=== PATIENT | female | born 1955 | race African-American/Black ===

== ENCOUNTER 2019-01-31 13:44 | Emergency (ER) | payer MEDICAID ==
[~2019-01-31] VITALS: Ht 165.1 cm; Wt 108.9 kg
[~2019-01-31 13:44] MED LIST: BENAZEPRIL HCL10 MG ORAL; CATAPRES0.2 MG ORAL; GLUCOPHAGE500 MG ORAL; GLUCOTROL5 MG ORAL; IBUPROFEN600 MG ORAL; NAPROXEN250 MG ORAL; NORCO 10/3251 EA ORAL; VICODIN 5-5001 EACH PO
[2019-01-31 14:05] VITALS: BP 207/95
--- NOTE | 2019-01-31 14:05 | NUR ---
ED Nurse Note: Pt walked in to ED c/o dizinness with nausea since this morning. Pt also reports tinnitus since last night. Pt is A&O x4, V/S noted, denies pain. Pt is connected to the laboratory monitor, bed placed in the lowest position with side rails up. Will continue to monitor.
[2019-01-31] MEDS ORDERED: LORazepam Inj 2mg/ml 1ml IV ONE (14:15)
--- NOTE | 2019-01-31 14:20 | Emergency Room Report ---
History of Present Illness General Chief Complaint: Dizziness Source: Patient Present Illness HPI Patient presents with dizziness. She had a problem with her right ear and used hydroperoxide last night. She also used it again this morning. There is improvement in her hearing. After that she started to feel dizziness. The dizziness was associated with nausea. There is no vomiting. She also feels some heartburn. She checked her sugar this morning and it was around 200. She denies any headache, fevers, chills, chest pain or palpitations. She also says she was drinking some wine last night. She usually does not drink wine. The patient has a history of hypertension. She did take her medications morning. She says that when she is around doctors her blood pressure goes up particularly when she feels anxious. She does feel anxiety at this time. She takes metformin. No blood thinners, oncologic problems, weakness or numbness. 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 Reviewed Nursing Documentation: PMH: Agreed; PSxH: Agreed Nursing Documentation-PMH Past Medical History: No History, Except For Hx Hypertension: Yes Hx Diabetes: Yes Review of Systems All Other Systems: negative except mentioned in HPI Physical Exam Vital Signs Date Time Temp Pulse Resp B/P (MAP) Pulse Ox O2 Delivery O2 Flow Rate FiO2 01/31/19 14:03 98.1 80 13 99 Room Air Sp02 EP Interpretation: reviewed, normal General Appearance: well appearing, no apparent distress, GCS 15 Head: normocephalic, atraumatic Eyes: bilateral eye normal inspection, bilateral eye PERRL, bilateral eye EOMI - No nystagmus ENT: TMs + canals normal, moist mucus membranes, other - no pinna tenderness Neck: supple Respiratory: lungs clear, normal breath sounds Cardiovascular #1: regular rate, rhythm Cardiovascular #2: 2+ radial (R) Gastrointestinal: normal inspection, normal bowel sounds, non tender, no mass, non-distended Musculoskeletal: back normal, gait/station normal, normal range of motion Neurologic: alert, oriented x3, motor strength/tone normal - no drift, DTRs symmetric, sensory intact, cerebellar normal, speech normal Psychiatric: depressed affect Skin: normal inspection, warm/dry Medical Decision Making Diagnostic Impression: Primary Impression: Labyrinthitis of right ear Additional Impression: Labile hypertension ER Course Patient presents with vertigo and nausea after cleaning her right ear. In addition she is diabetic and hypertensive. I differential includes labyrinthitis, local reaction to ear cleaning, hyperglycemia, other electro right abnormalities, acute myocardial infarction amongst others. The patient will be evaluated with EKG, chest x-ray and labs. CT is not indicated as the patient is a nonfocal neurologic at this time. The patient will be treated with Zofran, Pepcid and Ativan. Repeat blood pressures will be obtained. The patient is placed on a patient monitor. EKG no injury. CXR inc cor. Labs with elevated glucose. Eosinophilia. Improved with treatment. No nausea. Able to sit and stand without dizziness. Discussed findings with patient. Patient stable for outpatient observation and treatment. Laboratory Tests Test 01/31/19 14:35 01/31/19 14:40 Urine Opiates Screen Negative (NEGATIVE) Urine Barbiturates Screen Negative (NEGATIVE) Phencyclidine (PCP) Screen Negative (NEGATIVE) Urine Amphetamines Screen Negative (NEGATIVE) Urine Benzodiazepines Screen Negative (NEGATIVE) Urine Cocaine Screen Negative (NEGATIVE) Urine Marijuana (THC) Screen Negative (NEGATIVE) White Blood Count 4.8 K/UL (4.8-10.8) Red Blood Count 4.92 M/UL (4.20-5.40) Hemoglobin 13.4 G/DL (12.0-16.0) Hematocrit 40.7 % (37.0-47.0) Mean Corpuscular Volume 83 FL (80-99) Mean Corpuscular Hemoglobin 27.2 PG (27.0-31.0) Mean Corpuscular Hemoglobin Concent 32.8 G/DL (32.0-36.0) Red Cell Distribution Width 12.4 % (11.6-14.8) Platelet Count 257 K/UL (150-450) Mean Platelet Volume 6.5 FL (6.5-10.1) Neutrophils (%) (Auto) 57.6 % (45.0-75.0) Lymphocytes (%) (Auto) 28.4 % (20.0-45.0) Monocytes (%) (Auto) 7.6 % (1.0-10.0) Eosinophils (%) (Auto) 3.7 % (0.0-3.0) H Basophils (%) (Auto) 2.7 % (0.0-2.0) H PTT 26 SEC (23-33) Sodium Level 140 MMOL/L (136-145) Potassium Level 4.1 MMOL/L (3.5-5.1) Chloride Level 102 MMOL/L (98-107) Carbon Dioxide Level 31 MMOL/L (21-32) Anion Gap 7 mmol/L (5-15) Blood Urea Nitrogen 15 mg/dL (7-18) Creatinine 0.8 MG/DL (0.55-1.30) Estimate Glomerular Filtration Rate > 60 mL/min (>60) Glucose Level 226 MG/DL (74-106) H Calcium Level 9.6 MG/DL (8.5-10.1) Total Bilirubin 0.6 MG/DL (0.2-1.0) Aspartate Amino Transferase (AST) 15 U/L (15-37) Alanine Aminotransferase (ALT) 24 U/L (12-78) Alkaline Phosphatase 74 U/L (46-116) Total Creatine Kinase 189 U/L (26-308) Troponin I 0.000 ng/mL (0.000-0.056) Pro-B-Type Natriuretic Peptide 57 pg/mL (0-125) Total Protein 7.7 G/DL (6.4-8.2) Albumin 3.6 G/DL (3.4-5.0) Globulin 4.1 g/dL Albumin/Globulin Ratio 0.9 (1.0-2.7) L Serum Alcohol < 3 mg/dL EKG Diagnostic Results Rate: normal Rhythm: NSR ST Segments: no acute changes - LAE Rhythm Strip Diag. Results EP Interpretation: yes Rhythm: NSR, no PVC's, no ectopy Chest X-Ray Diagnostic Results Chest X-Ray Diagnostic Results : Chest X-Ray Ordered: Yes # of Views/Limited/Complete: 1 View Indication: Other EP Interpretation: Yes Interpretation: no consolidation, no effusion, no pneumothorax, other - inc cor Impression: Other Electronically Signed by: Electronically signed by Renato Pritchard MD Last Vital Signs Date Time Temp Pulse Resp B/P (MAP) Pulse Ox O2 Delivery O2 Flow Rate FiO2 01/31/19 16:44 98.3 74 15 156/74 100 Room Air Status: improved Disposition: HOME, SELF-CARE Condition: Improved Scripts Ondansetron Odt* (ZOFRAN ODT*) 4 Mg Tab.rapdis 4 MG BC EVERY 8 HOURS, #6 TAB 0 Refills Prov: Renato Pritchard MD 01/31/19 Meclizine Hcl* (MECLIZINE*) 25 Mg Tablet 25 MG ORAL THREE TIMES A DAY PRN for vertigo, #10 TAB Prov: Renato Pritchard MD 01/31/19 Renato Pritchard MD January 31, 2019 14:20
[2019-01-31 14:51] LABS: BASOPHILS % (AUTO) 2.7 % (0.0-2.0); EOSINOPHILS % (AUTO) 3.7 % (0.0-3.0); HEMATOCRIT 40.7 % (37.0-47.0); HEMOGLOBIN 13.4 G/DL (12.0-16.0); LYMPHOCYTES % (AUTO) 28.4 % (20.0-45.0); MEAN CORPUSCULAR VOLUME 83 FL (80-99); MONOCYTES % (AUTO) 7.6 % (1.0-10.0); NEUTROPHILS % (AUTO) 57.6 % (45.0-75.0); PLATELET COUNT 257 K/UL (150-450); RED BLOOD COUNT 4.92 M/UL (4.20-5.40); RED CELL DISTRIBUTION WIDTH 12.4 % (11.6-14.8); WHITE BLOOD COUNT 4.8 K/UL (4.8-10.8)
[2019-01-31 15:02] LABS: ANION GAP 7 mmol/L (5-15); BLOOD UREA NITROGEN 15 mg/dL (7-18); CALCIUM 9.6 MG/DL (8.5-10.1); CARBON DIOXIDE 31 MMOL/L (21-32); CHLORIDE 102 MMOL/L (98-107); CREATININE 0.8 MG/DL (0.55-1.30); POTASSIUM 4.1 MMOL/L (3.5-5.1); SODIUM 140 MMOL/L (136-145)
[2019-01-31 15:12] LABS: ALANINE AMINOTRANSFERASE 24 U/L (12-78); ALBUMIN 3.6 G/DL (3.4-5.0); ALBUMIN/GLOBULIN RATIO 0.9 (1.0-2.7); ALKALINE PHOSPHATASE 74 U/L (46-116); ASPARTATE AMINO TRANSFERASE 15 U/L (15-37); BILIRUBIN,TOTAL 0.6 MG/DL (0.2-1.0); CREATINE KINASE 189 U/L (26-308)
--- NOTE | 2019-01-31 15:54 | Diagnostic Imaging Report ---
EXAM: XR Chest, 1 View CLINICAL HISTORY: DIZZY TECHNIQUE: Frontal view of the chest. COMPARISON: No relevant prior studies available. FINDINGS: Lungs: Vascular congestion. Pleural space: Unremarkable. No pneumothorax. Heart: Mild cardiomegaly. Mediastinum: Unremarkable. Bones/joints: Unremarkable. IMPRESSION: Cardiomegaly and vascular congestion
[2019-01-31] MEDS ORDERED: MECLIZINE HCL25 MG ORAL (16:25)
[2019-01-31] MEDS ORDERED: ONDANSETRON ODT4 MG BC (16:25)
--- NOTE | 2019-01-31 16:43 | NUR ---
ED Nurse Note: PT LAYING PEACEFULLY IN BED IN NAD. AOX4. PRESCRIPTIONS AND DISCHARGE PAPERWORK EXPLAINED TO PT. PT VERBALIZES UNDERSTANDING AND ALL QUESTIONS ANSWERED. PRESCRIPTIONS AND DISCHARGE PAPERWORK GIVEN TO PT, IV AND ID WRISTBAND REMOVED. PT WALKED OUT OF ER WITH STEADY GAIT AND ALL BELONGINGS.
[2019-01-31 16:44] VITALS: BP 156/74
== END 2019-01-31 16:44 | disposition home or self-care (01) ==
LOC: EMR 14:28
DX: H83.01 Labyrinthitis, right ear (principal); I10 Essential (primary) hypertension; E11.9 Type 2 diabetes mellitus without complications; Z79.84 Long term (current) use of oral hypoglycemic drugs; Z79.899 Other long term (current) drug therapy; I51.7 Cardiomegaly
CPT/HCPCS: 36415; 71045; 80053; 80307; 80329; 82550; 83880; 84484; 85025; 85730; 93005; 96374; 96375; 99284; J2405; S0028

== ENCOUNTER 2020-07-15 18:32 | Emergency (ER) | payer BC, MEDICAID, MEDICARE ==
[~2020-07-15] VITALS: Ht 167.6 cm; Wt 111.1 kg
[~2020-07-15 18:32] MED LIST changes: +MECLIZINE HCL25 MG ORAL; +ONDANSETRON ODT4 MG BC
[2020-07-15 18:58] VITALS: BP 206/108
[2020-07-15] MEDS ORDERED: Morphine Sulfate 4mg/ml Inj (IV USE ONLY) IVP ONE (19:15)
[2020-07-15] MEDS ORDERED: Omnipaque-300 100ml vial INJ ONE (19:15)
--- NOTE | 2020-07-15 19:25 | Emergency Room Report ---
History of Present Illness General Chief Complaint: General Complaint Source: Patient (Jocelyn Guzmán) Present Illness HPI 65-year-old female with past medical history of diabetes and high blood pressure presents to the emergency department complaining of 10 out of 10 severity pain localized to the right breast in addition to swelling, bruising and tenderness. Patient status post right breast biopsy performed 2 days ago. Patient reports she was told by 1 of the nurses after the procedure that "something may have gotten clipped "patient referring to small blood vessel. Patient states her bruising has been progressive. She states she is not currently taking any antibiotics or pain medications. Patient denies taking blood thinning medications. Patient also reports that after the procedure she had 4 [id number] mammograms performed which exacerbated her symptoms. She denies fevers or chills. She denies nausea vomiting. She reports pain is worse with palpation or laying on her side. Patient denies bleeding or discharge from the incision sites. Patient states she had a follow-up with her NEON INSTALLER who told her to go to the ER. (Jocelyn Guzmán) Allergies: Coded Allergies: No Known Allergies (Unverified , 10/28/17) COVID-19 Screening Contact w/high risk pt: No Experienced COVID-19 symptoms?: No COVID-19 Testing performed FORGING MACHINE HAND: No (Jocelyn Guzmán) Patient History Past Medical History: see triage record Past Surgical History: none Pertinent Family History: none Last Menstrual Period: na Reviewed Nursing Documentation: PMH: Agreed; PSxH: Agreed (Jocelyn Guzmán) Nursing Documentation-PMH Past Medical History: No History, Except For Hx Hypertension: Yes Hx Diabetes: Yes (Jocelyn Guzmán) Review of Systems All Other Systems: negative except mentioned in HPI (Jocelyn Guzmán) Physical Exam Vital Signs Date Time Temp Pulse Resp B/P (MAP) Pulse Ox O2 Delivery O2 Flow Rate FiO2 07/15/20 18:39 98.1 91 18 206/108 (140) 98 Room Air Sp02 EP Interpretation: reviewed, normal General Appearance: no apparent distress, alert, GCS 15, non-toxic Head: normocephalic, atraumatic Eyes: bilateral eye normal inspection, bilateral eye PERRL ENT: hearing grossly normal, normal voice Neck: full range of motion Respiratory: lungs clear, normal breath sounds, speaking full sentences, other - Moderate tenderness to palpation to the right breast there is a large visible hematoma. 2 surgical incision sites are noted that were covered with Steri- Strips. Some palpable warmth Cardiovascular #1: regular rate, rhythm, no edema Gastrointestinal: normal bowel sounds, non tender, soft Musculoskeletal: normal range of motion, gait/station normal, non-tender Neurologic: alert, motor strength/tone normal, oriented x3, sensory intact, responsive, speech normal Psychiatric: judgement/insight normal Skin: Ecchymosis/Bruising - large hematoma of the anteriolateral aspect of the right breast. (Jocelyn Guzmán) Medical Decision Making PA Attestation Dr. Pritchard Is my supervising Physician whom patient management has been discussed with. (Jocelyn Guzmán) Diagnostic Impression: Primary Impression: Breast hematoma after procedure Additional Impressions: Hyperglycemia Breast mass, right Hypertension Qualified Codes: I10 - Essential (primary) hypertension ER Course 65-year-old female with past medical history of diabetes and high blood pressure presents to the emergency department complaining of 10 out of 10 severity pain localized to the right breast in addition to swelling, bruising and tenderness. Patient status post right breast biopsy performed 2 days ago. Patient reports she was told by 1 of the nurses after the procedure that "something may have gotten clipped "patient referring to small blood vessel. Patient states her bruising has been progressive. She states she is not currently taking any antibiotics or pain medications. Patient denies taking blood thinning medications. Patient also reports that after the procedure she had 4 [id number] mammograms performed which exacerbated her symptoms. She denies fevers or chills. She denies nausea vomiting. She reports pain is worse with palpation or laying on her side. Patient denies bleeding or discharge from the incision sites. Patient states she had a follow-up with her NEON INSTALLER who told her to go to the ER. Ddx considered but are not limited to cellulitis, abscess, mastitis, shingles, malignancy,or hematoma just to name a few. Vital signs: Pt. BP is significantly elevated, remaining VS are WNL, pt. is afebrile. H&PE are most consistent with Large hematoma of the right breast requiring imaging and labs to determine extent and to r/o infectious process. ORDERS: -CBC: Unremarkable -CMP: Glucose elevated at 405 -PT/PTT: -ABO : - Lactic Acid: WNL -CT Chest w. Contrast:See report below ED INTERVENTIONS: -Morphine 6mg IV -1 Liter NS Bolus --glucose improved to 231 with half the fluids, Continue to receive full liter prior to d/c. BP was rechecked as well. Extensive Pt. education regarding hyperglycemia and elevated blood pressures. Emphasis was placed on group home damage to kidneys as well as high risk of stoke. Encouraged pt. to keep a log and check twice a day. Reviewed imaging results with pt. and she was given a copy to take with her to her follow up appointments. DISCHARGE: At this time pt. is stable for d/c to home. Will provide printed patient care instructions, and any necessary prescriptions. Care plan and follow up instructions have been discussed with the patient prior to discharge. Labs Test 07/15/20 19:20 White Blood Count 5.3 K/UL (4.8-10.8) Red Blood Count 4.90 M/UL (4.20-5.40) Hemoglobin 13.7 G/DL (12.0-16.0) Hematocrit 40.7 % (37.0-47.0) Mean Corpuscular Volume 83 FL (80-99) Mean Corpuscular Hemoglobin 28.0 PG (27.0-31.0) Mean Corpuscular Hemoglobin Concent 33.7 G/DL (32.0-36.0) Red Cell Distribution Width 12.3 % (11.6-14.8) Platelet Count 246 K/UL (150-450) Mean Platelet Volume 8.0 FL (6.5-10.1) Neutrophils (%) (Auto) 49.6 % (45.0-75.0) Lymphocytes (%) (Auto) 37.5 % (20.0-45.0) Monocytes (%) (Auto) 6.9 % (1.0-10.0) Eosinophils (%) (Auto) 3.4 % (0.0-3.0) Basophils (%) (Auto) 2.6 % (0.0-2.0) Prothrombin Time 10.1 SEC (9.30-11.50) Prothromb Time International Ratio 0.9 (0.9-1.1) Activated Partial Thromboplast Time 25 SEC (23-33) Sodium Level 135 MMOL/L (136-145) Potassium Level 3.7 MMOL/L (3.5-5.1) Chloride Level 100 MMOL/L (98-107) Carbon Dioxide Level 28 MMOL/L (21-32) Anion Gap 7 mmol/L (5-15) Blood Urea Nitrogen 21 mg/dL (7-18) Creatinine 1.2 MG/DL (0.55-1.30) Estimat Glomerular Filtration Rate 54.7 mL/min (>60) Glucose Level 402 MG/DL (74-106) Lactic Acid Level 1.70 mmol/L (0.4-2.0) Calcium Level 8.8 MG/DL (8.5-10.1) Total Bilirubin 0.3 MG/DL (0.2-1.0) Aspartate Amino Transf (AST/SGOT) 13 U/L (15-37) Alanine Aminotransferase (ALT/SGPT) 11 U/L (12-78) Alkaline Phosphatase 102 U/L (46-116) Total Protein 6.3 G/DL (6.4-8.2) Albumin 3.0 G/DL (3.4-5.0) Globulin 3.3 g/dL Albumin/Globulin Ratio 0.9 (1.0-2.7) (Jocelyn Guzmán) ER Course Patient signed out to me. She presents with hematoma however p.o. after procedure done. Her blood pressure was elevated. Oral and IV blood pressure medication given. She also has high blood sugar and that improved with IV fluid. Patient has no evidence of endorgan damage. Will discharge home. (Yonatan Mi MD) CT/MRI/US Diagnostic Results CT/MRI/US Diagnostic Results : Impression " IMPRESSION: 1. No acute abnormality definitively identified to account for patient presentation. 2. Recommend diagnostic right breast mammogram and ultrasound to further evaluate possible right breast neoplasm. 3. Nonobstructing right nephroliths, largest 0.3 cm. 4. Otherwise unremarkable. ADDENDUM - Added by Tigre Kemp MD on 07/15/2020 9:06 PM (-07:00) Addendum: 1. Reportedly, this patient had a recent breast biopsy. 2. Findings in the right breast could also be consistent with trauma. 3. Otherwise unchanged report." --Per official radiology report- Please see report for specific details. (Jocelyn Guzmán) Last Vital Signs Date Time Temp Pulse Resp B/P (MAP) Pulse Ox O2 Delivery O2 Flow Rate FiO2 07/15/20 18:58 91 18 Room Air 07/15/20 18:58 98.1 206/108 98 (Jocelyn Guzmán) Status: improved (Yonatan Mi MD) Disposition: HOME, SELF-CARE Condition: Improved Signed Out To: Dr. Pritchard (Jocelyn Guzmán) Scripts Hydrocodone Bit/Acetaminophen 7.5-325* (NORCO 7.5-325*) 1 Each Tablet 1 TAB ORAL Q6H PRN for For Pain, #12 TAB 0 Refills Prov: Jocelyn Guzmán 07/15/20 Patient Instructions: Blood Glucose Monitoring, Adult, Breast Biopsy, Care After, Form - Blood Pressure Record Sheet, Hematoma, How to Take Your Blood Pressure, [id number], Hyperglycemia, [id number], Managing Your High Blood Pressure Additional Instructions: Take medications as directed. Do not drink alcohol, drive, or operate heavy machinery while taking [place] as this may cause drowsiness. Follow up with Your (PCP) Primary Care Provider and Transmission Design Engineer within 3-4 days, even if your symptoms have resolved. Bring the copy of your CT imaging results with you to both visits. Repeat evaluation/imaging will need to compare sizes of the 5.4cm mass. keep a log of your blood sugar and Blood pressure twice a day. If your resul ts continue to be abnormal your medication may need to be adjusted to avoid serious complications of high blood sugar or blood pressure such as renal damage/failure, coma, stroke or a brain bleed. Just to name a few. Return sooner to ED if new symptoms occur, or current symptoms become worse. - Please note that this Emergency Department Report was dictated using [employer] technology software, occasionally this can lead to erroneous entry secondary to interpretation by the dictation equipment. Jocelyn Guzmán Jul 15, 2020 19:25 Yonatan Mi MD Jul 15, 2020 22:52
[2020-07-15 19:38] LABS: BASOPHILS % (AUTO) 2.6 % (0.0-2.0); EOSINOPHILS % (AUTO) 3.4 % (0.0-3.0); HEMATOCRIT 40.7 % (37.0-47.0); HEMOGLOBIN 13.7 G/DL (12.0-16.0); LYMPHOCYTES % (AUTO) 37.5 % (20.0-45.0); MEAN CORPUSCULAR VOLUME 83 FL (80-99); MONOCYTES % (AUTO) 6.9 % (1.0-10.0); NEUTROPHILS % (AUTO) 49.6 % (45.0-75.0); PLATELET COUNT 246 K/UL (150-450); RED CELL DISTRIBUTION WIDTH 12.3 % (11.6-14.8); WHITE BLOOD COUNT 5.3 K/UL (4.8-10.8)
[2020-07-15 19:51] LABS: CALCIUM 8.8 MG/DL (8.5-10.1); CREATININE 1.2 MG/DL (0.55-1.30); POTASSIUM 3.7 MMOL/L (3.5-5.1)
[2020-07-15 19:53] LABS: INR 0.9 (0.9-1.1)
[2020-07-15 19:56] LABS: ALBUMIN/GLOBULIN RATIO 0.9 (1.0-2.7); BILIRUBIN,TOTAL 0.3 MG/DL (0.2-1.0)
--- NOTE | 2020-07-15 21:00 | Diagnostic Imaging Report ---
ADDENDUM - Added by Tigre Kemp MD on 07/15/2020 9:06 PM (-07:00) Addendum: 1. Reportedly, this patient had a recent breast biopsy. 2. Findings in the right breast could also be consistent with trauma. 3. Otherwise unchanged report. EXAM: CT Chest With Intravenous Contrast CLINICAL HISTORY: PAIN TECHNIQUE: Axial computed tomography images of the chest with intravenous contrast. CTDI is 15.6 mGy and DLP is 697.8 mGy-cm. One or more of the following dose reduction techniques were used: automated exposure control, adjustment of the mA and/or kV according to patient size, use of iterative reconstruction technique. COMPARISON: No relevant prior studies available. FINDINGS: Lungs: Unremarkable. No mass. No consolidation. Pleural space: Unremarkable. No pneumothorax. No significant effusion. Heart: Unremarkable. No cardiomegaly. No significant pericardial effusion. Bones/joints: Unremarkable. No acute fracture. No dislocation. Soft tissues: Right breast soft tissue mass 5.4 cm maximal dimension with focal calcification and right breast skin thickening. Vasculature: Unremarkable. No thoracic aortic aneurysm. Lymph nodes: Unremarkable. No enlarged lymph nodes. Kidneys and ureters: Nonobstructing right nephroliths, largest 0.3 cm. IMPRESSION: 1. No acute abnormality definitively identified to account for patient presentation. 2. Recommend diagnostic right breast mammogram and ultrasound to further evaluate possible right breast neoplasm. 3. Nonobstructing right nephroliths, largest 0.3 cm. 4. Otherwise unremarkable. <MYCVCSECTION> Communications: 07/15/20 21:02 Call Doctor Regarding Other, called AMY Banks on 07/15 21: 01 (-07:00)
[2020-07-15] MEDS ORDERED: NORCO 7.5-3251 EACH ORAL (21:50)
[2020-07-15] MEDS ORDERED: Labetalol 5mg/ml 20ml vial IV ONE (22:30)
[2020-07-15 22:55] VITALS: BP 191/97
== END 2020-07-15 22:55 | disposition home or self-care (01) ==
LOC: EMR 19:01
DX: L76.32 Postprocedural hematoma of skin and subcutaneous tissue following other procedure (principal); I10 Essential (primary) hypertension; E11.65 Type 2 diabetes mellitus with hyperglycemia; N63.10 Unspecified lump in the right breast, unspecified quadrant; N20.0 Calculus of kidney
CPT/HCPCS: 36415; 71260; 80053; 83605; 85025; 85610; 85730; 86850; 86900; 86901; 87040; 96361; 96374; 96375; 99284; J2270; J7030; Q9965

== ENCOUNTER 2020-08-10 21:16 | Inpatient (IN) | payer MEDICARE ==
[~2020-08-10] VITALS: Ht 167.6 cm; Wt 107.5 kg
[~2020-08-10 21:16] MED LIST changes: +NORCO 7.5-3251 EACH ORAL
[2020-08-10 21:25] VITALS: BP 202/98
--- NOTE | 2020-08-10 21:25 | NUR ---
ED Nurse Note: Patient walked in from home d/t left sided upper rib pain that started 1 week ago, describes it as aching 06/09. Patient aao x 4 and ambulatory with weak gait. Patient reports she had a MRI with contrast and the pain started after. Patient changed into gown and placed on equipment monitor phototypesetting. No acute distress noted during assessment.
[2020-08-10] MEDS ORDERED: Morphine Sulfate 4mg/ml Inj (IV USE ONLY) IVP ONE ×2 (22:00→23:30)
--- NOTE | 2020-08-10 22:04 | Emergency Room Report ---
History of Present Illness General Chief Complaint: Pain Source: Patient Present Illness HPI 65-year-old female with a history diabetes. She presents with chief complaint of left upper quadrant pain. Onset for a week now. This occurred after she got an MRI of her breast. She states she has 2 hangover table for the MRI and afterward she has been complaining of left upper quadrant pain. Worse with movement and palpation. Now is getting worse. Pain is 10 out of 10. No fever chills. No nausea no vomiting. No urinary complaint. Her second complaint is that she had a head injury and headache. She said she was walking down the stairs and slipped and fell backward hit her head. She has pain to the top of her head and back of her head. No loss of consciousness. Pain is sharp and achy in nature. 7 out of 10. She took Tylenol 3 for both her pains and not any better. Allergies: Coded Allergies: No Known Allergies (Unverified , 10/28/17) COVID-19 Screening Contact w/high risk pt: No Experienced COVID-19 symptoms?: No COVID-19 Testing performed [employer] TECHNICIAN: No Patient History Past Medical History: see triage record, old chart reviewed, DM Past Surgical History: other Pertinent Family History: none Social History: Denies: smoking Last Menstrual Period: n/a Now: No Immunizations: other Reviewed Nursing Documentation: PMH: Agreed; PSxH: Agreed Nursing Documentation-PMH Hx Hypertension: Yes Hx Diabetes: Yes Review of Systems Eye: Denies: eye pain, blurred vision ENT: Denies: ear pain, nose congestion, throat swelling Respiratory: Denies: cough, shortness of breath Cardiovascular: Denies: chest pain, palpitations Gastrointestinal: Reports: abdominal pain; Denies: diarrhea, nausea, vomiting Musculoskeletal: Denies: back pain, joint pain Skin: Denies: rash Neurological: Denies: headache, numbness Endocrine: Denies: increased thirst, increased urine Hematologic/Lymphatic: Denies: easy bruising All Other Systems: negative except mentioned in HPI Physical Exam Vital Signs Date Time Temp Pulse Resp B/P (MAP) Pulse Ox O2 Delivery O2 Flow Rate FiO2 08/10/20 21:16 97.9 81 16 215/96 (135) 95 Room Air Vitals with high blood pressure Sp02 EP Interpretation: reviewed, normal General Appearance: well appearing, no apparent distress, alert, obese Head: normocephalic, atraumatic - Tenderness over the superior occiput area. No hematoma Eyes: bilateral eye PERRL, bilateral eye EOMI ENT: hearing grossly normal, normal pharynx Neck: full range of motion, supple, no meningismus Respiratory: chest non-tender, lungs clear, normal breath sounds Cardiovascular #1: regular rate, rhythm, no murmur Gastrointestinal: normal bowel sounds, no mass, no organomegaly, no bruit, non- distended, tenderness - Numbness in the left upper quadrant over the costophrenic angle/rib area Musculoskeletal: back normal, normal range of motion, gait/station normal Psychiatric: mood/affect normal Medical Decision Making Diagnostic Impression: Primary Impression: Chest pain Qualified Codes: R07.9 - Chest pain, unspecified Additional Impressions: Abdominal pain Qualified Codes: R10.12 - Left upper quadrant pain Head injury, acute Qualified Codes: S09.90XA - Unspecified injury of head, initial encounter Hyperglycemia due to type 2 diabetes mellitus Qualified Codes: E11.65 - Type 2 diabetes mellitus with hyperglycemia Hypertensive urgency Left bundle branch block (LBBB) on electrocardiogram ER Course Patient presents with chest pain/abdominal pain. Most of pain is over the ribs of the costophrenic angle. Abdominal CT scans unremarkable. CT chest negative for PE or pulmonary issue. EKG showed a left bundle branch block which is new since 2019. Troponin is negative however. Blood pressure is very elevated as is her glucose. Patient said that she takes her medication but her son who is a doctor said that she stopped to get pizza before coming to the hospital. Because of her continued pain and elevated blood pressure, will admit for further work-up and chest pain rule out. I discussed case with Dr. Camacho for admission. EKG Diagnostic Results Troponin ordered: Yes Rate: normal Rhythm: NSR ST Segments: other - LBBB Rhythm Strip Diag. Results EP Interpretation: yes Rate: 75 Rhythm: NSR, no PVC's, no ectopy CT/MRI/US Diagnostic Results CT/MRI/US Diagnostic Results #1: Imaging Test Ordered: CT head Impression Read by radiologist. Soft tissue hematoma. CT/MRI/US Diagnostic Results #2: Imaging Test Ordered: CT chest Impression Read by radiologist. Negative. CT/MRI/US Diagnostic Results #3: Imaging Test Ordered: CT abdomen pelvis Impression By radiologist. There is density seen within the right breast measuring up to 3 cm. Which is nonspecific. (Patient had recent mammography and MRI of the breast outpatient.) Last Vital Signs Date Time Temp Pulse Resp B/P (MAP) Pulse Ox O2 Delivery O2 Flow Rate FiO2 08/10/20 21:16 97.9 81 16 215/96 (135) 95 Room Air Status: improved Disposition: ADMITTED INPATIENT Condition: Serious Yonatan Mi MD Aug 10, 2020 22:04
[2020-08-10 22:17] LABS: APPEARANCE,URINE CLEAR; BASOPHILS % (AUTO) 2.5 % (0.0-2.0); BILIRUBIN, URINE NEGATIVE (NEGATIVE); COLOR,URINE PALE YELLOW; EOSINOPHILS % (AUTO) 3.6 % (0.0-3.0); GLUCOSE, URINE (UA) 4+ (NEGATIVE); HEMATOCRIT 46.5 % (37.0-47.0); HEMOGLOBIN 15.2 G/DL (12.0-16.0); KETONES,URINE NEGATIVE (NEGATIVE); LEUKOCYTE ESTERASE ,URINE NEGATIVE (NEGATIVE); LYMPHOCYTES % (AUTO) 28.4 % (20.0-45.0); MEAN CORPUSCULAR VOLUME 84 FL (80-99); MONOCYTES % (AUTO) 5.6 % (1.0-10.0); NEUTROPHILS % (AUTO) 59.9 % (45.0-75.0); NITRITE,URINE NEGATIVE (NEGATIVE); PH,URINE 7 (4.5-8.0); PLATELET COUNT 291 K/UL (150-450); PROTEIN,URINE 3+ (NEGATIVE); UROBILINOGEN,URINE NORMAL MG/DL (0.0-1.0); WHITE BLOOD COUNT 6.3 K/UL (4.8-10.8)
[2020-08-10 22:46] LABS: CALCIUM 8.9 MG/DL (8.5-10.1); CREATININE 1.2 MG/DL (0.55-1.30); POTASSIUM 4.1 MMOL/L (3.5-5.1)
--- NOTE | 2020-08-10 22:50 | NUR ---
ED Nurse Note: Patient taken to CT in stable condition.
[2020-08-10 22:51] LABS: ALBUMIN 3.3 G/DL (3.4-5.0); ALBUMIN/GLOBULIN RATIO 0.7 (1.0-2.7); BILIRUBIN,TOTAL 0.3 MG/DL (0.2-1.0)
--- NOTE | 2020-08-10 23:04 | Diagnostic Imaging Report ---
EXAM: CT Head Without Intravenous Contrast CLINICAL HISTORY: TRAUMA TECHNIQUE: Axial computed tomography images of the head/brain without intravenous contrast. CTDI is 53.4 mGy and DLP is 937.7 mGy-cm. One or more of the following dose reduction techniques were used: automated exposure control, adjustment of the mA and/or kV according to patient size, use of iterative reconstruction technique. COMPARISON: No relevant prior studies available. FINDINGS: Brain: No acute infarct, hemorrhage, mass or edema. Chronic small vessel ischemic disease. Ventricles: Unremarkable. No ventriculomegaly. Bones/joints: Unremarkable. No acute calvarial fracture. Soft tissues: Mild soft tissue swelling about the left scalp. Sinuses: Mild mucosal thickening in the paranasal sinuses. Mastoid air cells: Unremarkable as visualized. IMPRESSION: 1. No acute infarct, hemorrhage, mass or edema. 2. Mild soft tissue swelling about the left scalp.
[2020-08-10] MEDS ORDERED: Labetalol 5mg/ml 20ml vial IV ONE (23:15)
[2020-08-10] MEDS ORDERED: Insulin Human Regular 100units/ml 3ml IV ONE (23:15)
--- NOTE | 2020-08-10 23:20 | Diagnostic Imaging Report ---
EXAM: CT Abdomen and Pelvis Without Intravenous Contrast CLINICAL HISTORY: ABD PAIN TECHNIQUE: Axial computed tomography images of the abdomen and pelvis without intravenous contrast. CTDI is 21.4 mGy and DLP is 1051.4 mGy-cm. One or more of the following dose reduction techniques were used: automated exposure control, adjustment of the mA and/or kV according to patient size, use of iterative reconstruction technique. COMPARISON: No relevant prior studies available. FINDINGS: Lung bases: Unremarkable. Heart: Trace pericardial effusion. ABDOMEN: Liver: Unremarkable. Gallbladder and bile ducts: Unremarkable. Pancreas: Unremarkable. Spleen: Unremarkable. Adrenals: Unremarkable. Kidneys and ureters: Calcifications within the bilateral colton, the majority of which are likely vascular. No hydronephrosis. Stomach and bowel: Unremarkable. PELVIS: Appendix: Appendix is unremarkable. Bladder: Unremarkable. Reproductive: Uterus is surgically absent. ABDOMEN and PELVIS: Intraperitoneal space: Unremarkable. Bones/joints: No acute fracture. No dislocation. Soft tissues: There is a density seen within the right breast measuring up to 3 cm, which is nonspecific. Correlate with recent mammogram. Vasculature: Vascular calcifications. Lymph nodes: Unremarkable. IMPRESSION: There is a density seen within the right breast measuring up to 3 cm, which is nonspecific. Correlate with recent mammogram.
[2020-08-10 23:55] VITALS: BP 169/86
[2020-08-11] MEDS ORDERED: Omnipaque 350 100ml vial INJ PRN (00:15)
--- NOTE | 2020-08-11 00:55 | NUR ---
ED Nurse Note: Patient taken to CT in stable condition
[2020-08-11] MEDS ORDERED: Labetalol 5mg/ml 20ml vial IV ONE ×2 (01:00→02:15)
[2020-08-11] MEDS ORDERED: Insulin Human Regular 100units/ml 3ml IV ONE (01:00)
--- NOTE | 2020-08-11 01:48 | Diagnostic Imaging Report ---
EXAM: CT Angiography Chest With Intravenous Contrast CLINICAL HISTORY: CP TECHNIQUE: Axial computed tomographic angiography images of the chest with intravenous contrast. CTDI is 77.60 mGy and DLP is 762.90 mGy-cm. One or more of the following dose reduction techniques were used: automated exposure control, adjustment of the mA and/or kV according to patient size, use of iterative reconstruction technique. MIP reconstructed images were created and reviewed. COMPARISON: No relevant prior studies available. FINDINGS: Pulmonary arteries: No pulmonary embolus. Aorta: No thoracic aortic dissection or aneurysm. Lungs: Dependent atelectasis. No mass. Pleural space: Unremarkable. No significant effusion. No pneumothorax. Heart: Heart is enlarged. No significant pericardial effusion. No evidence of RV dysfunction. Bones/joints: No acute fracture. No dislocation. Soft tissues: Unremarkable. Lymph nodes: Unremarkable. No enlarged lymph nodes. IMPRESSION: No acute findings in the visualized arteries of the chest.
[2020-08-11] MEDS ORDERED: MOVE FREE ULTR PO (02:19)
[2020-08-11] MEDS ORDERED: NORMODYNE100 MG ORAL (02:19)
[2020-08-11] MEDS ORDERED: METOPROLOL SUCC50 MG ORAL (02:19)
[2020-08-11] MEDS ORDERED: AMLODIPINE BESY10 MG ORAL (02:19)
[2020-08-11] MEDS ORDERED: FUROSEMIDE40 MG ORAL (02:19)
--- NOTE | 2020-08-11 02:32 | NUR ---
ED Nurse Note: Report given to NICHOLE Cortez.
--- NOTE | 2020-08-11 02:35 | NUR ---
TRANSFER TO FLOOR: Patient transferred to telemetry as ordered, per ERMD. Report given to NICHOLE Cortez.
[2020-08-11 02:40] VITALS: BP 186/91
--- NOTE | 2020-08-11 02:40 | NUR ---
NURSE NOTES: Patient arrived to unit via stretcher. With assistance sitting up the patient was able to stand up and ambulate to the bathroom with minimal assistance. The patient is noted to have a steady gait but is weak. Patient voided and was safely transferred to the bed. Patient is noted to be awake and alert x 4. Patient is noted to be on room with with no complaints of shortness of breath. Patient does have complaints of "left upper rib pain" 10/10 that radiates to her back. It is noted that patient received morphine in the emergency department with no relief. Patient is noted to have clear lung sounds. Patient is noted to have soft and non tender abdomen. Patient is continent and able to void. Patient passing flatus. Patient report to have last moved bowels this previous morning. Patient is noted to have clean, dry, intact skin. Patient's medical history was reviewed. Patient's home medication list was updated. Patient's belongings accounted for. Patient is noted to have right AC 18 juan IV access. Diego VARELA educated the patient on the use of the call light and fall safety. Patient verbalized understanding. Bed is locked and in lowest position. Call light in reach. Will contact Doctor Janice regarding admission orders.
--- NOTE | 2020-08-11 03:00 | NUR ---
NURSE NOTES: Called Doctor Janice regarding admission orders. Orders obtained. Will begin plan of care.
--- NOTE | 2020-08-11 03:15 | NUR ---
NURSE NOTES: Diego VARELA spoke with patient to discuss plan of care. Diego VARELA informed the patient that the admitting doctor ordered a LexiScan stress test for this coming morning. The patient at this time is refusing to have the stress test at this time. Patient is stating "there must be another test that can be done". The patient continues to refuse the stress test even after provided education from Diego VARELA. Diego VARELA also informed the patient that clonidine was ordered PRN to help maintain the patient's blood pressure. The patient is refusing to take clonidine stating that it does not make her feel well. Patient stated that her blood pressure will come down on it's own as she relaxes and as the medication for the emergency department starts to "kick in". It is noted that the patient received a total of 60 mg of Labetalol and one time dose of Norvasc in the emergency department. Diego VARELA also informed the patient that the nursing staff will be monitoring her blood glucose levels and providing insulin as ordered by the MD. The patient is unsure how she feels about receiving insulin despite getting 20 units in the emergency department. The patient states that her blood sugar will come down with her blood pressure. Diego VARELA called and left a voicemail with Doctor Camacho regarding the problems stated above. Diego VARELA also informed charge Nurse Haseeb of the problems stated above.
--- NOTE | 2020-08-11 03:45 | NUR ---
NURSE NOTES: Diego VARELA discussed with Haseeb VARELA and was decided not to input order for stress test at this time due to patient refusal. Still awaiting call back from Doctor Camacho.
[2020-08-11 04:00] VITALS: BP 187/85
--- NOTE | 2020-08-11 06:27 | NUR ---
NURSE NOTES: Patient noted to have blood glucose level of 277. With further education patient agreed to take insulin. However, patient informed Diego VARELA she does not want to take insulin when she is discharged. Patient continues to refuse to have Lexiscan at this time. Still no callback.
[2020-08-11] MEDS: NovoLOG Insulin Flexpen SUBQ SCH ×2 (06:33→11:52)
--- NOTE | 2020-08-11 07:07 | NUR ---
NURSE HAND-OFF REPORT: Important Events on Shift: Patient recent admission. Patient is non compliant with care. Refusing Lexiscan, awaiting call back from MD. Patient does not want to continue to take insulin and clonidine despite being educated by Diego VARELA. Patient Status: full code Diet: NPO Pending Orders: none Pending Results/Labs:morning labs Pending MD notification:Doctor Janice Latest Vital Signs: Temperature 98.2 , Pulse 74 , B/P 145 /87 , Respiratory Rate 18 , O2 SAT 98 , Room Air, O2 Flow Rate . Vital Sign Comment: within normal limits. EKG Rhythm: 1st Degree HB Rhythm change?: N MD Notified?: - MD Response: Latest Cervantes Fall Score: 15 Fall Risk: Low Risk Safety Measures: Call light Within Reach, Bed Alarm , Side Rails Side Rails x2, Bed position Low and Locked. Fall Precautions: Yellow Socks Report given to Queta VARELA
--- NOTE | 2020-08-11 07:30 | NUR ---
NURSE NOTES: Received report from Diego/RN. Pt is awake, laying down in bed in semi-fowlers position. Able to make needs known. On room air, no distress or SOB noted. IV on right AC 18G, patent and clean. Bed in the lowest position and locked. Call light within reach, encouraged to use it when needed. Side rails up X2. Will continue plan of care.
[2020-08-11 08:00] VITALS: BP 162/85
[2020-08-11] MEDS ORDERED: Metoprolol Succinate XL 50mg tab ORAL SCH (09:00)
[2020-08-11] MEDS ORDERED: Benazepril 10mg tab ORAL SCH (09:00)
[2020-08-11] MEDS ORDERED: Vitamin D 1000 IU Tab ORAL SCH (09:00)
--- NOTE | 2020-08-11 09:25 | NUR ---
CASE MANAGEMENT:REVIEW 65 YR OLD FEMALE WALKED INTO ER CC: LEFT SIDED UPPER RIB PAIN. PAIN STARTED AFTER MRI W/CONTRAST 1 WEEK AGO SI: CHEST PAIN. LBBB. HYPERGLYCEMIA 97.9 81 16 213/87 95% ON RA GLUCOSE+474 IS: 1L NS BOLUS IV ZOFRAN IV MORPHINE X2 IV INSULIN IV LABETALOL CT ABD/PELVIS CT HEAD CTA CHEST : TO TELEMETRY DCP: FROM HOME
[2020-08-11] MEDS ORDERED: HYDROcodone/Acetamin 5/325 tab ORAL SCH (09:45)
[2020-08-11 12:00] VITALS: BP 138/68
--- NOTE | 2020-08-11 12:09 | NUR ---
NURSE NOTES: Discharge order by Dr Camacho, pt stated she does not have anybody to pick her up until 5PM. A taxi was offered to help pt but she refused, stating does not feeling comfortable leaving by herself and rather wait for her family member.
--- NOTE | 2020-08-11 12:30 | History and Physical Report ---
DATE OF ADMISSION: 08/11/2020 HISTORY OF PRESENT ILLNESS: This is a 65-year-old female with history of hypertension and diabetes mellitus. She came to the hospital with left upper quadrant pain. The patient states she had undergone a recent MRI of her breast and had to lie on her stomach with a bar hitting the lower part of her ribcage for a fairly long time. States that she has been having pain since that time. On my assessment, the patient is noted to have palpable tenderness over the left lower ribcage as well. Apart from this, she denies any other problem. No shortness of breath. The patient is noted to be on [place] prescriptions from past as well. Currently, she denies any upper precordial pain, arm pain, or jaw pain. There is no nausea, vomiting, or diarrhea. No hematemesis. There is no dizziness, no jaw radiation. PAST MEDICAL HISTORY: Hypertension and diabetes mellitus. PAST SURGICAL HISTORY: Surgeries are none. MEDICATIONS: Include amlodipine, benazepril, [place], metformin, and metoprolol. REVIEW OF SYSTEMS: Denies any headaches, hematemesis, melena, or hematochezia. PHYSICAL EXAMINATION: GENERAL: Reveals an obese female. VITAL SIGNS: Blood pressure 160/80, heart rate 74, respirations 16. She is afebrile. HEENT: Unremarkable. LUNGS: Clear breath sounds. ABDOMEN: Soft. EXTREMITIES: There is no edema. MUSCULOSKELETAL: There is left lower ribcage tenderness. IMAGING STUDIES: The patient underwent a CT of the chest and upper abdomen, which is unremarkable. There was no pulmonary embolism. There was no obvious rib fracture. Head CT was negative. She also underwent abdomen and pelvis CT, which was negative for any acute pathology. There is noted in the right breast. LABORATORY DATA: Lab testing shows normal CBC and BMP. Troponin being negative x2. Urinalysis is negative. IMPRESSION: 1. Muscular left chest wall pain. 2. Obesity. 3. Diabetes mellitus. 4. Hypertension. 5. Nonspecific right breast lesion. DISCUSSION: The patient can be discharged home now that we have established that she has musculoskeletal chest wall pain. She has underwent extensive imaging with CT of the chest and abdomen, which were both negative. There are no other fractures. We will initiate [place]. We will follow as an outpatient. José Miguel Camahco M.D. DR: GAMAL JOB#: [id number] CC:
--- NOTE | 2020-08-11 15:39 | NUR ---
NURSE NOTES: Pt discharged under Dr Camacho's order. Pt left via private vehicle accompanied by a family member. Pt in stable condition, no distress or SOB noted. site monitor, IV acces, and ID band removed. Belongings check list done and signed by the pt.
--- NOTE | 2020-08-15 13:07 | Discharge Summary ---
Discharge Summary Discharge Summary _ DATE OF ADMISSION: 08/11/2020 DATE OF DISCHARGE: 08/11/2020 DISCHARGED BY: Dr. Camacho REASON FOR ADMISSION: 65 years old female with past medical history of hypertension, diabetes, right breast cancer, presented to emergency department with complaint of left upper quadrant pain. Patient apparently undergone recent MRI of her breast and was lying on her stomach with a bar hitting the lower part of her rib cage for a fairly long time. Patient reported having pain at that place since that time. Patient noted to have palpable tenderness over the left lower rib cage. Apart from this, she denied any other problems. No shortness of breath, no dizziness, no palpitations. No cough . No nausea , vomiting or diarrhea ; no hematemesis. CT of the head revealed no acute intracranial pathology. CTA of the chest revealed no acute findings . No evidence of pulmonary emboli ; no thoracic aortic dissection or aneurysm. CT of the abdomen and pelvis revealed density in the right breast , measuring up to 3 cm. Laboratory work-up revealed no leukocytosis . Troponin negative , EKG revealed sinus rhythm, no acute ischemic changes. Urinalysis revealed borderline pyuria and few bacteria, +3 protein. Patient admitted to telemetry floor for further management. HOSPITAL COURSE: Patient admitted to telemetry floor. Repeated troponin was negative. EKG revealed no acute ischemic changes. Patient was ruled out for acute myocardial infarction. Pain management was addressed , and pain was controlled. Blood pressure was managed with current regimen, including beta-carlos, MARITZA inhibitor, calcium channel carlos. Blood sugar was managed with sliding scale of insulin. Patient clinically stabilized and was ready for discharge. Due to rapid and unexpected improvement in patient condition , patient was discharged in 1 day. FINAL DIAGNOSES: Musculoskeletal left chest wall pain Obesity Diabetes mellitus Hypertension Right breast lesion /reported breast cancer DISCHARGE MEDICATIONS: See Medication Reconciliation list. DISCHARGE INSTRUCTIONS: Patient was discharged home. Follow-up with a primary care provider in 1 week. I have been assigned to dictate discharge summary for this account. I was not involved in the patient's management. Mariam Gil NP Aug 15, 2020 13:07
== END 2020-08-11 15:38 | disposition home or self-care (01) | DRG 313 ==
LOC: EMR 22:20 → 2E 08-11 00:30 → EDBEDREQ 08-11 02:09
DX: R07.89 Other chest pain (principal); E66.9 Obesity, unspecified; Z68.38 Body mass index [BMI] 38.0-38.9, adult; E11.9 Type 2 diabetes mellitus without complications; C50.911 Malignant neoplasm of unspecified site of right female breast; I11.0 Hypertensive heart disease with heart failure; I50.9 Heart failure, unspecified
CPT/HCPCS: 36415; 70450; 71275; 74176; 80053; 81003; 82962; 83690; 84484; 85025; 93005; 96361; 96374; 96375; 96376; 99285; J1815; J2405; J7030